=== PATIENT | male | born 1995 | race Caucasian/White ===

== ENCOUNTER 2019-03-10 03:27 | Emergency (ER) | payer SELFPAY ==
[~2019-03-10] VITALS: Ht 195.6 cm; Wt 97.5 kg
--- NOTE | 2019-03-10 03:27 | NUR ---
PT BIB [facility], PREBOOK. TAKEN TO [facility]AIR C
[2019-03-10 03:35] VITALS: BP 142/88
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
--- NOTE | 2019-03-10 03:50 | NUR ---
Dr. Braswell examining patient.
[2019-03-10 04:08] VITALS: BP 142/88
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
== END 2019-03-10 04:08 ==
LOC: MED 03:27
DX: Z04.1 Encounter for examination and observation following transport accident (principal); J45.909 Unspecified asthma, uncomplicated
CPT/HCPCS: 99283